=== PATIENT | male | born 1965 | race Hispanic/Latino ===

== ENCOUNTER → 2021-06-25 11:12 | Outpatient (CLI) | payer SELFPAY ==
--- NOTE | ~2021-06-25 | XR_ITS ---
EXAMINATION: XR foot RT min 3V EXAM DATE: 06/25/2021 12:03 INDICATION: Bilateral foot pain. TECHNIQUE: Right foot dorsoplantar, lateral and oblique projections obtained and reviewed. Images o btained standing. Correlation was made with contralateral foot same date. FINDINGS: Right metatarsal bones unremarkable. There is small calcaneal inferior spur. There is mild pectus deformity symmetric to the contralateral side. There are mild vascular calcifications. There is mild 1st metatarsophalangeal joint primary osteoarthritis. Lateral projection also demonstrates m ild polyarticular midfoot osteoarthritis. There are no acute fractures identified. Generalized osteop enia. No stress fracture or erosive change. IMPRESSION: 1. Mild polyarticular right foot osteoarthritis. 2. Small inferior calcaneal spur. 3. Martha's deformity. 4. Osteopenia. Reviewed, dictated and finalized at location B. [employer]
--- NOTE | ~2021-06-25 | XR_ITS ---
XR foot LT min 3V DATE: 06/25/2021 12:03 INDICATION: Bilateral foot pain TECHNIQUE: Standing 3 view examination COMPARISON: None FINDINGS: There is diffuse osteopenia. There is osteoarthritic spurring at the tibiotalar joint. There is mild osteoarthritis at the first metatarsophalangeal joint No fracture or dislocation, periosteal reaction or bone destruction. IMPRESSION: Osteoarthritis Osteopenia Reviewed, dictated and finalized at location A. [employer] IMPRESSION: Osteoarthritis Osteopenia
== END ==
PROVIDERS: Visit Provider Podiatrist Foot & Ankle Surgery
DX: M79.672 Pain in left foot (principal); M79.671 Pain in right foot; M19.072 Primary osteoarthritis, left ankle and foot; M19.071 Primary osteoarthritis, right ankle and foot; M77.31 Calcaneal spur, right foot; M92.61 Juvenile osteochondrosis of tarsus, right ankle; M85.89 Other specified disorders of bone density and structure, multiple sites
CPT/HCPCS: 73630

== ENCOUNTER 2021-11-17 09:45 | Outpatient (CLI) | payer SELFPAY ==
--- NOTE | 2021-11-17 11:30 | NEURO_ITS ---
Impression: # Complains of numbness/imbalance. # Extra strength required on Nerve Conduction Study to obtain responses. # Needle/EMG exam revealed decreased motor potentials but no active denervation potentials. # Findings suggestive of neuropathy. # Clinical correlation recommended. Nerve Conduction Studies Anti Sensory Summary Table Stim Site NR Peak (ms) P-T Amp (?V) Site1 Site2 Delta-P (ms) Dist (cm) Abelardo (m/s) Left Sup Fibular Anti Sensory (Ant Lat Mall) 14 cm 3.2 23.7 14 cm Ant Lat Mall 3.2 16.0 50 Right Sup Fibular Anti Sensory (Ant Lat Mall) 14 cm 3.0 14.9 14 cm Ant Lat Mall 3.0 16.0 53 Left Sural Anti Sensory (Lat Mall) Calf 3.8 20.3 Calf Lat Mall 3.8 16.0 42 Right Sural Anti Sensory (Lat Mall) Calf 3.9 8.2 Calf Lat Mall 3.9 16.0 41 Motor Summary Table Stim Site NR Onset (ms) O-P Amp (mV) Site1 Site2 Delta-0 (ms) Dist (cm) Abelardo (m/s) Left Peroneal Motor (Vastus Med) Ankle 4.3 2.8 Popit Ankle 8.8 37.0 42 Popit 13.1 2.4 Right Peroneal Motor (Vastus Med) Ankle 4.1 3.4 Popit Ankle 8.3 35.0 42 Popit 12.4 2.6 Left Tibial Motor (Abd Soria Brev) Ankle 4.5 5.5 Knee Ankle 10.0 42.0 42 Knee 14.5 3.4 Right Tibial Motor (Abd Soria Brev) Ankle 4.1 5.1 Knee Ankle 10.0 41.0 41 Knee 14.1 3.0 F Wave Studies NR F-Lat (ms) L-R F-Lat (ms) Left Peroneal (Mrkrs) (EDB) 51.99 0.82 Right Peroneal (Mrkrs) (EDB) 52.81 0.82 Left Tibial (Mrkrs) (Abd Hallucis) 52.70 0.93 Right Tibial (Mrkrs) (Abd Hallucis) 53.63 0.93 EMG Side Muscle Nerve Root Ins Act Fibs Amp Dur Recrt Comment Right AntTibialis Dp Br Fibular L4-5 Nml Nml Nml Nml Reduced Right Gastroc Tibial S1-2 Nml Nml Nml Nml Reduced Right Fibularis Long Sup Br Fibular L5-S1 Nml Nml Nml Nml Reduced Right Flex Dig Long Tibial L5-S2 Nml Nml Nml Nml Reduced Right Ext Dig Brev Dp Br Fibular L5, S1 Nml Nml Nml Nml Reduced Left AntTibialis Dp Br Fibular L4-5 Nml Nml Nml Nml Reduced Left Gastroc Tibial S1-2 Nml Nml Nml Nml Reduced Left Fibularis Long Sup Br Fibular L5-S1 Nml Nml Nml Nml Reduced Left Flex Dig Long Tibial L5-S2 Nml Nml Nml Nml Reduced Left Ext Dig Brev Dp Br Fibular L5, S1 Nml Nml Nml Nml Reduced MTDD
== END 2021-11-17 09:46 | disposition home or self-care (01) ==
LOC: ANHNEURO 09:49
PROVIDERS: Visit Provider Physician Assistant
DX: G62.9 Polyneuropathy, unspecified (principal)
CPT/HCPCS: 95886; 95910